=== PATIENT | male | born 1970 | race Caucasian/White ===

== ENCOUNTER 2016-07-30 10:45 | Outpatient (CLI) | payer OTHER | END 2016-07-30 10:46 | disposition home or self-care (01) | DX: J03.90 Acute tonsillitis, unspecified (principal) ==

== ENCOUNTER 2018-11-30 07:14 | Outpatient (CLI) | payer OTHER ==
[2018-11-30 12:49] LABS: BASOPHILS # (AUTO) 0.1 10^3/uL (0.0-0.1); BASOPHILS % (AUTO) 0.8 %; EOSINOPHILS # (AUTO) 0.3 10^3/uL (0.0-0.7); EOSINOPHILS % (AUTO) 3.6 %; HGB - HEMOGLOBIN 14.6 g/dL (14.0-18.0); LYMPHOCYTES # (AUTO) 2.3 10^3/uL (1.5-3.5); LYMPHOCYTES % (AUTO) 33.6 %; MEAN CORPUSCULAR HEMOGLOBIN 27.6 pg (27.0-31.0); MEAN CORPUSCULAR HGB CONC 32.4 g/dL (32.0-36.0); MEAN CORPUSCULAR VOLUME 85.1 fL (80.0-94.0); MEAN PLATELET VOLUME 8.8 fL (7.4-11.4); MONOCYTES # (AUTO) 0.6 10^3/uL (0.0-1.0); MONOCYTES % (AUTO) 8.6 %; NEUTROPHILS # (AUTO) 3.7 10^3/uL (1.5-6.6); NEUTROPHILS % (AUTO) 53.4 %; PLT - PLATELET COUNT 282 10^3/uL (130-450); RED BLOOD COUNT 5.28 10^6/uL (4.70-6.10); RED CELL DISTRIBUTION WIDTH 13.7 % (12.0-15.0); WHITE BLOOD COUNT 6.9 x10^3/uL (4.8-10.8)
[2018-11-30 13:34] LABS: ALBUMIN 4.4 g/dL (3.2-5.5); ALBUMIN/GLOBULIN RATIO 1.5 (1.0-2.2); ALKALINE PHOSPHATASE 67 IU/L (42-121); ALT ALANINE AMINOTRANSFERASE 38 IU/L (10-60); AST ASPARTATE AMINOTRANSFERASE 29 IU/L (10-42); BILIRUBIN,TOTAL 0.7 mg/dL (0.2-1.0); BUN - BLOOD UREA NITROGEN 16 mg/dL (6-20); CALCIUM 9.4 mg/dL (8.5-10.3); CARBON DIOXIDE - CO2 24 mmol/L (21-32); CHLORIDE 106 mmol/L (101-111); CHOLESTEROL 191 mg/dL; CREATININE 0.8 mg/dL (0.6-1.2); GFR - MDRD 102 (>89); GLUCOSE 99 mg/dL (70-100); HDL CHOLESTEROL 38 mg/dL; LDL CHOLESTEROL,CALCULATED 137 mg/dL; LDL/HDL RATIO 3.6 (<3.6); SODIUM 138 mmol/L (135-145); TOTAL PROTEIN 7.4 g/dL (6.7-8.2); VLDL CHOLESTEROL 16 mg/dL
== END 2018-11-30 07:15 | disposition home or self-care (01) ==
LOC: LAB.WCP 07:14
PROVIDERS: ATTEND Physician Assistant Medical
DX: Z00.00 Encounter for general adult medical examination without abnormal findings (principal); E78.5 Hyperlipidemia, unspecified; Z12.5 Encounter for screening for malignant neoplasm of prostate; K21.9 Gastro-esophageal reflux disease without esophagitis
CPT/HCPCS: 36415; 80053; 80061; 83721; 84153; 84443; 85025

== ENCOUNTER 2019-07-11 08:44 | Emergency (ER) | payer OTHER ==
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
[2019-07-11] MEDS ORDERED: PROPARACAINE 0.5% OPHTH DROPS 15 ML EACHEYE STA (09:16)
[2019-07-11] MEDS ORDERED: LIDOCAINE-EPINEPH-TETRACAINE 3 ML SYRINGE TOP STA (09:16)
[2019-07-11] MEDS ORDERED: IBUPROFEN 600 MG TABLET PO STA (09:16)
[2019-07-11] MEDS ORDERED: ACETAMINOPHEN 325 MG TABLET PO STA (09:16)
[2019-07-11 11:03] VITALS: BP 139/100
[2019-07-11] MEDS ORDERED: ERYTHROMYCIN OPHTH OINT 1 GM TUBE EACHEYE STA (11:07)
== END 2019-07-11 11:16 | disposition home or self-care (01) ==
LOC: ED 08:44
DX: T75.4XXA Electrocution, initial encounter (principal); T20.19XA Burn of first degree of multiple sites of head, face, and neck, initial encounter; T26.42XA Burn of left eye and adnexa, part unspecified, initial encounter; T26.41XA Burn of right eye and adnexa, part unspecified, initial encounter; T23.152A Burn of first degree of left palm, initial encounter; T23.151A Burn of first degree of right palm, initial encounter; W86.1XXA Exposure to industrial wiring, appliances and electrical machinery, initial encounter; Y93.89 Activity, other specified; Y99.0 Civilian activity done for income or pay; I10 Essential (primary) hypertension
CPT/HCPCS: 1040M; 93005; 99283; 99284; A9270; J3490

== ENCOUNTER 2020-07-29 14:13 | Outpatient (CLI) | payer OTHER ==
--- NOTE | 2020-07-29 15:38 | XRAY Report ---
PROCEDURE: Hips 2V BILAT INDICATIONS: CHRONIC LOW BACK PAIN TECHNIQUE: 3 views of the hip were acquired. COMPARISON: CT abdomen and pelvis 07/31/2013. FINDINGS: Bones: No fractures or dislocations. No suspicious bony lesions. The visualized pelvic ring appear s intact. Mild symmetric bilateral hip DJD. Overall similar to 2014. No avascular necrosis of the fem oral heads. Soft tissues: No suspicious soft tissue calcifications or masses. IMPRESSION: Mild symmetric bilateral hip DJD similar to 2014. Reviewed by: Jaguar Vieyra MD on 07/29/2020 2:37 PM [place] Approved by: Jaguar Vieyra MD on 07/29/2020 2:37 PM [place] Station ID: [id number]
--- NOTE | 2020-07-29 15:40 | XRAY Report ---
PROCEDURE: Lumbar Spine 2 View INDICATIONS: CHRONIC LOW BACK PAIN TECHNIQUE: 3 views of the lumbar spine were acquired. COMPARISON: CT abdomen and pelvis 07/31/2013. FINDINGS: Bones: 5 [id number] vertebrae are present. There is normal bony alignment. No vertebral body compression fractures. No suspicious bony lesions. Mild facet joint hypertrophy at L5-S1. Interverte bral disc space height appears preserved. Soft tissues: Overlying bowel gas pattern is normal. No suspicious soft tissue calcifications. IMPRESSION: Mild facet joint hypertrophy at L5-S1. Reviewed by: Jaguar Vieyra MD on 07/29/2020 2:39 PM [facility] Approved by: Jaguar Vieyra MD on 07/29/2020 2:39 PM [facility] Station ID: [id number]
== END 2020-07-29 14:14 | disposition home or self-care (01) ==
LOC: DI 14:13
PROVIDERS: ATTEND Physician Assistant Medical
DX: M54.5 Low back pain (principal); G89.29 Other chronic pain; M16.0 Bilateral primary osteoarthritis of hip
CPT/HCPCS: 73521

== ENCOUNTER 2020-07-31 16:17 | Emergency (ER) | payer OTHER ==
[2020-07-31 17:07] LABS: BASOPHILS # (AUTO) 0.1 10^3/uL (0.0-0.1); BASOPHILS % (AUTO) 0.6 %; EOSINOPHILS # (AUTO) 0.2 10^3/uL (0.0-0.7); EOSINOPHILS % (AUTO) 2.1 %; HGB - HEMOGLOBIN 14.2 g/dL (14.0-18.0); LYMPHOCYTES # (AUTO) 2.6 10^3/uL (1.5-3.5); LYMPHOCYTES % (AUTO) 23.4 %; MEAN CORPUSCULAR HEMOGLOBIN 28.2 pg (27.0-31.0); MEAN CORPUSCULAR HGB CONC 32.6 g/dL (32.0-36.0); MEAN CORPUSCULAR VOLUME 86.5 fL (80.0-94.0); MEAN PLATELET VOLUME 9.2 fL (7.4-11.4); MONOCYTES # (AUTO) 0.6 10^3/uL (0.0-1.0); MONOCYTES % (AUTO) 5.6 %; NEUTROPHILS # (AUTO) 7.4 10^3/uL (1.5-6.6); NEUTROPHILS % (AUTO) 67.7 %; PLT - PLATELET COUNT 405 10^3/uL (130-450); RED BLOOD COUNT 5.04 10^6/uL (4.70-6.10); RED CELL DISTRIBUTION WIDTH 13.2 % (12.0-15.0)
[2020-07-31 17:22] LABS: ALBUMIN 4.1 g/dL (3.2-5.5); ALBUMIN/GLOBULIN RATIO 1.1 (1.0-2.2); BILIRUBIN,TOTAL 0.7 mg/dL (0.2-1.0); CALCIUM 9.3 mg/dL (8.5-10.3); TOTAL PROTEIN 7.7 g/dL (6.7-8.2)
[2020-07-31 17:31] LABS: BILIRUBIN,URINE NEGATIVE (NEGATIVE); GLUCOSE, URINE (UA) NEGATIVE (NEGATIVE); KETONES,URINE (UA) NEGATIVE (NEGATIVE); LEUKOCYTE ESTERASE, URINE NEGATIVE (NEGATIVE); NITRITE,URINE NEGATIVE (NEGATIVE); OCCULT BLOOD,URINE NEGATIVE (NEGATIVE); PROTEIN,URINE NEGATIVE (NEGATIVE); UROBILINOGEN,URINE 0.2 (NORMAL) E.U./dL (NORMAL)
[2020-07-31 17:35] LABS: CLARITY,URINE CLEAR (CLEAR)
[2020-07-31] MEDS ORDERED: SODIUM CHLORIDE 0.9% 1,000 ML IV STA (18:04)
[2020-07-31] MEDS ORDERED: IOVERSOL 320 100 ML VIAL IVP ONE ×2 (18:20→20:33)
--- NOTE | 2020-07-31 19:03 | ED Physician Documentation ---
History of Present Illness - Stated complaint Stated Complaint: ABD PX - Chief complaint Chief Complaint: Abd Pain - History obtained from History obtained from: Patient - Additonal information Additional information: Patient comes emergency department chief complaint of right lower quadrant and suprapubic pain that started about a week and a half ago. Patient states that he has had low-grade fevers and diarrhea throughout that time and just figured that perhaps he was having another kidney stone. He states that his temperature got as high as 100.4 until 2 days ago when it spiked up to 102. Patient states that after resting for a day he felt better, and decided to go to work. However, the right lower quadrant pain was nagging at him and he felt that he should get it checked out. He went to urgent care earlier today and they told him to come here. The patient denies fever chills currently. No dysuria. No hematuria. He denies recent antibiotic treatment. No vomiting, though the pa gale has some mild nausea. No history of diverticulitis. No respiratory symptoms. No other complaints at this time. Review of Systems Ten Systems: 10 systems reviewed and negative Constitutional: reports: Fever, Chills Eyes: reports: Reviewed and negative Ears: reports: Reviewed and negative Nose: reports: Reviewed and negative Throat: reports: Reviewed and negative Cardiac: reports: Reviewed and negative Respiratory: reports: Reviewed and negative GI: reports: Abdominal Pain, Nausea : reports: Reviewed and negative Skin: reports: Reviewed and negative Musculoskeletal: reports: Reviewed and negative Neurologic: reports: Reviewed and negative Psychiatric: reports: Reviewed and negative Endocrine: reports: Reviewed and negative Immunocompromised: reports: Reviewed and negative PD PAST MEDICAL HISTORY - Past Medical History Past Medical History: Yes Cardiovascular: Hypertension, High cholesterol Respiratory: Other Endocrine/Autoimmune: None GI: None : Kidney stones, Other HEENT: None Psych: Claustrophobia Musculoskeletal: Chronic back pain Derm: None - Past Surgical History Past Surgical History: Yes General: Gastric surgery, EGD - Present Medications Home Medications: Ambulatory Orders Medication Instructions Recorded Confirmed Spironolactone [Aldactone] 150 mg PO DAILY 07/27/13 11/07/14 Erythromycin Base [Erythromycin 1 applic OP QID #3.5 oint...g. 07/11/19 Ophthalmic Ointment] Loperamide [Imodium] 2 mg PO BID PRN #10 capsule 07/31/20 Ondansetron Odt [Zofran Odt] 4 mg TL Q6H PRN #10 tablet 07/31/20 - Allergies Allergies/Adverse Reactions: Allergies Allergy/AdvReac Type Severity Reaction Status Date / Time felodipine [From Plendil] Allergy Unknown Unknown Verified 07/31/20 16:39 - Social History Does the pt smoke?: No Smoking Status: Never smoker Does the pt drink ETOH?: No Does the pt have substance abuse?: No - Immunizations Immunizations are current?: Yes - POLST Patient has POLST: No PD ED PE NORMAL - Vitals Vital signs reviewed: Yes - General General: Alert and oriented X 3, No acute distress, Well developed/nourished - HEENT HEENT: Atraumatic, PERRL, EOMI, Moist mucous membranes - Neck Neck: Supple, no meningeal sign - Cardiac Cardiac: RRR, No murmur, Strong equal pulses - Respiratory Respiratory: No respiratory distress, Clear bilaterally - Abdomen Abdomen: Soft, Non tender (Mild, right lower quadrant), Non distended - Back Back: No CVA TTP - Derm Derm: Normal color, Warm and dry, No rash - Extremities Extremities: No deformity, No edema, No calf tenderness / cord - Neuro Neuro: Alert and oriented X 3 - Psych Psych: Normal mood, Normal affect Results - Vitals Vitals: Vital Signs - 24 hr 07/31/20 07/31/20 07/31/20 16:39 17:15 19:00 Temperature 37.2 C 37.2 C Heart Rate 85 85 76 Respiratory 18 18 18 Rate Blood Pressure 137/95 H 137/95 H 155/100 H O2 Saturation 96 96 97 Oxygen O2 Source Room air - Labs Labs: Laboratory Tests 07/31/20 07/31/20 07/31/20 17:01 17:01 17:16 WBC 11.0 H RBC 5.04 Hgb 14.2 Hct 43.6 MCV 86.5 MCH 28.2 MCHC 32.6 RDW 13.2 Plt Count 405 MPV 9.2 Neut # (Auto) 7.4 H Lymph # (Auto) 2.6 Bartholomew # (Auto) 0.6 Eos # (Auto) 0.2 Baso # (Auto) 0.1 Absolute Nucleated RBC 0.00 Nucleated RBC % 0.0 Sodium 138 Potassium 4.0 Chloride 103 Carbon Dioxide 25 Anion Gap 10.0 BUN 14 Creatinine 1.0 Estimated GFR (MDRD) 79 L Glucose 128 H Calcium 9.3 Total Bilirubin 0.7 AST 26 ALT 51 Alkaline Phosphatase 75 Total Protein 7.7 Albumin 4.1 Globulin 3.6 Albumin/Globulin Ratio 1.1 Lipase 192 H Urine Color YELLOW Urine Clarity CLEAR Urine pH 6.0 Ur Specific [place] >=1.030 H Urine Protein NEGATIVE Urine Glucose (UA) NEGATIVE Urine Ketones NEGATIVE Urine Occult Blood NEGATIVE Urine Nitrite NEGATIVE Urine Bilirubin NEGATIVE Urine Urobilinogen 0.2 (NORMAL) Ur Leukocyte Esterase NEGATIVE Ur Microscopic Review NOT INDICATED Urine Culture Comments NOT INDICATED - Rads (name of study) CT abd/pelvis Radiology: Final report received, EMP read indepedently, See rad report (nad) PD MEDICAL DECISION MAKING - ED course Complexity details: reviewed results, re-evaluated patient, considered differential, d/w patient ED course: The patient was worked up with labs, urinalysis, and CT of the abdomen and pelvis. The patient CT scan was negative, and labs were unremarkable. I suspect a viral illness as a cause for the patient's symptoms, though the symptoms do seem to be somewhat long-lasting for viral syndrome. I discussed with the patient that if he is not feeling better by the end of the week, he will need to follow-up with his primary care physician to discuss having stool studies done and also to discuss further work-up and management. We have discussed the usual indications for return. I have prescribed him Imodium. Departure - Departure Disposition: 01 Home, Self Care Clinical Impression: Viral gastroenteritis Condition: Stable Instructions: ED Gastroenteritis Viral Prescriptions: Loperamide [Imodium] 2 mg PO BID PRN #10 capsule PRN Reason: Diarrhea Ondansetron Odt [Zofran Odt] 4 mg TL Q6H PRN #10 tablet PRN Reason: Nausea / Vomiting Comments: Surprisingly, your CT scan was completely negative. This is good news, and that we have not found a serious cause of your pain. Most likely, you have contra cted one of the many viruses that go around this time of year and can cause such symptoms. You may take the medication for diarrhea, as needed. Please be sure to get plenty of fluids and try to eat some simple starches, which can be handled better by your intestines when you are not feeling well. Please follow- up with your primary care physician if you are not feeling better by the end of the week for stool studies. Discharge Date/Time: 07/31/20 19:34
--- NOTE | 2020-07-31 19:19 | CT Report ---
PROCEDURE: Abdomen/Pelvis W INDICATIONS: RLQ abd pain, fevers CONTRAST: IV CONTRAST: Optiray 320 ml: 100 PO CONTRAST: *NO PO CONTRAST TECHNIQUE: After the administration of weight appropriate dose of intravenous contrast, 5 mm thick sections acqu ired from the diaphragms to the symphysis. 5 mm thick coronal and sagittal reformats were acquired. For radiation dose reduction, the following was used: automated exposure control, adjustment of mA and/or kV according to patient size. COMPARISON: 07/31/2013 FINDINGS: Image quality: Excellent. ABDOMEN: Lung bases: Lung bases are clear. Heart size is normal. Solid organs: Liver and spleen are normal in size and enhancement. Hepatic steatosis. Gallbladder i s unremarkable. Biliary system is non dilated. Pancreas enhances normally. No adrenal nodules. Ki dneys demonstrate normal size and enhancement, without hydronephrosis. Peritoneum and bowel: Bowel loops demonstrate normal wall thickness and caliber. No free fluid or a ir. Normal appendix. Stable postsurgical changes of the stomach and GE junction. Nodes and vessels: No retroperitoneal or mesenteric adenopathy by size criteria. Aorta and inferior vena cava are normal in size. Miscellaneous: No ventral hernias. PELVIS: Genitourinary: Bladder wall thickness is normal. Miscellaneous: No pelvic adenopathy. Very small fat-containing bilateral inguinal hernias without ac [place] inflammation. Bones: No suspicious bony lesions. No acute vertebral body compression fractures. IMPRESSION: CT abdomen and pelvis without acute abnormalities to explain patient's symptoms. Normal appendix. Other chronic findings as above. Reviewed by: Sean Gamboa MD on 07/31/2020 6:18 PM [facility] Approved by: Sean Gamboa MD on 07/31/2020 6:18 PM [facility] Station ID: [id number]
[2020-07-31 19:29] VITALS: BP 155/100
--- OUTSIDE RECORDS SUMMARY | 2020-08-01 04:52 | EXTERNAL MEDICAL SUMMARY RPT | Continuity of Care Document ---
:1970 Demographics Phone Unavailable Preferred Language Occitan Marital Status Unknown Baptism Affiliation Unknown Race Unknown Ethnic Group Unknown Author Organization [place] [address] [place] Address [address] [phone] Phone Care Team Providers Name Role Phone PA-C Unavailable Unavailable Oc Unavailable Unavailable Eneiad Unavailable Unavailable Problems date description facility 2013-07-31 12:55 RENAL COLIC [facility] 2013-07-31 12:55 ABDOMINAL PAIN, OTHER SPECIFIED [facility] SITE 2014-06-08 09:19 [facility] 2014-06-08 09:19 BURSAE TENDONS DIS LDER NOS [facility] 2014-06-08 09:19 SPRAIN [address] [facility] 2014-06-08 09:[address] [facility] 2014-11-07 08:34 SHOULDER REGION DIS Located within [facility] 2014-11-07 08:34 SPRAIN ROTATOR CUFF [facility] 2014-11-07 08:34 SPRAIN SHOULDER/ARM Located within [facility] 2014-11-07 08:34 BARIATRIC SURGERY STATUS [facility] 2016-07-30 10:45 ACUTE TONSILLITIS, UNSPECIFIED [facility] 2018-11-30 07:14 HYPERLIPIDEMIA, UNSPECIFIED [facility] 2018-11-30 07:14 GASTRO-ESOPHAGEAL REFLUX [facility] DISEASE WITHOUT ESOPHAGITIS 2018-11-30 07:14 ENCNTR FOR GENERAL ADULT [facility] MEDICAL EXAM W/O ABNORMAL FINDINGS 2018-11-30 07:14 ENCOUNTER FOR SCREENING FOR [facility] MALIGNANT NEOPLASM OF PROSTATE 2020-07-12 00:00:00 TSH WITH REFLEX TO FT4 [facility] 2020-07-12 00:00:00 Screening for malignant [facility] neoplasms of colon [facility] 2020-07-12 00:00:00 LUMBAR SPINE 2 OR 3 VIEW [facility] 2020-07-12 00:00:00 HIP MIN 2 VIEWS BILATERAL [facility] (including hip and pelvis) [facility] 2020-07-12 00:00:00 COMPREHENSIVE METABOLIC PANEL [facility] 2020-07-12 00:00:00 [facility]:00 [facility] 2020-07-12 00:00:00 CBC W/Diff/Plt [facility] 2020-07-12 00:00:00 Encounter for screening for [facility] malignant neoplasm of colon [facility] 2020-07-12 00:00:00 Health-related behavior [facility] 2020-07-12 00:00:00 Tobacco use and exposure [facility] 2020-07-12 00:00:00 Exercise [facility] 2020-07-12 00:00:00 Never smoker [facility] 2020-07-12 00:00:00 [facility] neoplasm of colon [facility] 2020-07-12 00:00:00 Little interest or pleasure in [facility] doing things? [facility] 2020-07-12 00:00:00 Feeling down, depressed, or [facility] hopeless? [facility] 2020-07-12 00:00:00 Patient Health Questionnaire 2 [facility] item (PHQ2) total score [facility] 2020-07-12 00:00:00 [facility] 2020-07-12 00:00:00 Tobacco smoking status NHIS [facility] 2020-07-12 00:00:00 Total score? [facility] [place] [facility] 2020-07-29 14:13 LOW BACK PAIN [facility] 2020-07-31 00:00:00 Diarrhea [facility] 2020-07-31 00:00:00 Unspecified abdominal pain [facility] 2020-07-31 00:00:00 Diarrhea, unspecified [facility] 2020-07-31 00:00:00 Abdominal pain [facility] Allergies date description facility NO KNOWN ALLERGIES [facility] NO KNOWN ALLERGIES [facility] Penicillins [facility] dexamethasone [facility] CETIRIZINE HCL [facility] NO KNOWN ALLERGIES [facility] felodipine [facility] Medications date description facility 2020-07-12 00:00:00 null [facility] 2020-07-12 00:00:00 null [facility] 2020-07-12 00:00:00 GABAPENTIN [facility] 2020-07-12 00:00:00 GABAPENTIN [facility] Results Social History date description facility 2020-07-12 00:00:00 Never smoker [facility] Social History date description facility 2020-07-12 00:00:00 Never smoker [facility] date description facility [id number]
== END 2020-07-31 19:34 | disposition home or self-care (01) ==
LOC: ED 16:17
DX: A08.4 Viral intestinal infection, unspecified (principal); I10 Essential (primary) hypertension
CPT/HCPCS: 36415; 74177; 80053; 81003; 83690; 85025; 99284; Q9967; 81001; 87086

== ENCOUNTER 2020-10-05 09:11 | Day surgery (SDC) | payer OTHER ==
[2020-10-05] MEDS ORDERED: LACTATED RINGERS 1,000 ML IV ONE (09:56)
[2020-10-05] MEDS ORDERED: MIDAZOLAM 2 MG/2 ML VIAL ONE ×4 (10:04→10:23)
[2020-10-05] MEDS ORDERED: fentaNYL 250 MCG/5 ML VIAL ONE (10:05)
[2020-10-05] MEDS ORDERED: LACTATED RINGERS 400 ML IV ONE (10:35)
[2020-10-05] MEDS ORDERED: ONDANSETRON 4 MG/2 ML VIAL ONE (10:38)
[2020-10-05 10:52] VITALS: BP 114/66
== END 2020-10-05 09:12 | disposition home or self-care (01) ==
LOC: SDS 09:11
PROVIDERS: ATTEND Surgery
PROC: 0DBC8ZX Excision of Ileocecal Valve, Via Natural or Artificial Opening Endoscopic, Diagnostic (ICD-10-PCS; principal; 2020-10-05 10:30)
DX: R10.33 Periumbilical pain (principal); K63.3 Ulcer of intestine; D17.79 Benign lipomatous neoplasm of other sites; I10 Essential (primary) hypertension; G47.30 Sleep apnea, unspecified
CPT/HCPCS: 45380; J3010; J7120

== ENCOUNTER 2022-01-09 07:36 | Outpatient (CLI) | payer OTHER ==
[2022-01-09 07:50] LABS: BASOPHILS # (AUTO) 0.1 10^3/uL (0.0-0.1); BASOPHILS % (AUTO) 1.1 %; EOSINOPHILS # (AUTO) 0.2 10^3/uL (0.0-0.7); EOSINOPHILS % (AUTO) 4.3 %; HCT - HEMATOCRIT 47.2 % (42.0-52.0); HGB - HEMOGLOBIN 15.3 g/dL (14.0-18.0); LYMPHOCYTES # (AUTO) 1.9 10^3/uL (1.5-3.5); LYMPHOCYTES % (AUTO) 33.9 %; MEAN CORPUSCULAR HEMOGLOBIN 28.3 pg (27.0-31.0); MEAN CORPUSCULAR HGB CONC 32.4 g/dL (32.0-36.0); MEAN CORPUSCULAR VOLUME 87.2 fL (80.0-94.0); MEAN PLATELET VOLUME 9.7 fL (7.4-11.4); MONOCYTES # (AUTO) 0.5 10^3/uL (0.0-1.0); NEUTROPHILS # (AUTO) 2.9 10^3/uL (1.5-6.6); NEUTROPHILS % (AUTO) 52.5 %; PLT - PLATELET COUNT 265 10^3/uL (130-450); RED BLOOD COUNT 5.41 10^6/uL (4.70-6.10); RED CELL DISTRIBUTION WIDTH 12.7 % (12.0-15.0); WHITE BLOOD COUNT 5.6 x10^3/uL (4.8-10.8)
[2022-01-09 08:18] LABS: ALBUMIN 4.4 g/dL (3.2-5.5); ALBUMIN/GLOBULIN RATIO 1.3 (1.0-2.2); ALKALINE PHOSPHATASE 64 IU/L (42-121); ALT ALANINE AMINOTRANSFERASE 41 IU/L (10-60); AST ASPARTATE AMINOTRANSFERASE 25 IU/L (10-42); BILIRUBIN,TOTAL 0.8 mg/dL (0.2-1.0); BUN - BLOOD UREA NITROGEN 17 mg/dL (6-20); CALCIUM 9.3 mg/dL (8.5-10.3); CARBON DIOXIDE - CO2 29 mmol/L (21-32); CHLORIDE 105 mmol/L (101-111); CHOL/HDL RATIO 4.5 (<5.0); CHOLESTEROL 197 mg/dL; CREATININE 0.9 mg/dL (0.6-1.2); GFR - MDRD 88 (>89); GLUCOSE 120 mg/dL (70-100); HDL CHOLESTEROL 44 mg/dL; LDL CHOLESTEROL,CALCULATED 124 mg/dL; LDL/HDL RATIO 2.8 (<3.6); POTASSIUM 4.3 mmol/L (3.5-5.0); SODIUM 141 mmol/L (135-145); TOTAL PROTEIN 7.9 g/dL (6.7-8.2); TRIGLYCERIDES 143 mg/dL; VLDL CHOLESTEROL 29 mg/dL
[2022-01-09 08:27] LABS: THYROID STIMULATING HORMONE 3.2 uIU/mL (0.34-5.60)
== END 2022-01-09 07:37 | disposition home or self-care (01) ==
LOC: LAB 07:36
PROVIDERS: ATTEND Physician Assistant Medical
DX: Z00.00 Encounter for general adult medical examination without abnormal findings (principal); E78.5 Hyperlipidemia, unspecified; Z12.5 Encounter for screening for malignant neoplasm of prostate
CPT/HCPCS: 36415; 80053; 80061; 83721; 84153; 84443; 85025

== ENCOUNTER 2022-07-16 06:35 | Outpatient (CLI) | payer OTHER ==
[2022-07-16 06:54] LABS: CALCIUM 9.1 mg/dL (8.5-10.3); POTASSIUM 4.2 mmol/L (3.5-5.0)
[2022-07-16 13:22] LABS: ESTIMATED AVERAGE GLUCOSE 154 mg/dL (70-100)
--- NOTE | 2022-07-16 17:36 | XRAY Report ---
PROCEDURE: Hip w/Pelvis 2-3V LT INDICATIONS: HIP PAIN, LEFT TECHNIQUE: AP pelvis with lateral view(s) of the left hip(s). COMPARISON: None. FINDINGS: Bones: Left worse than right bilateral hip joint osteoarthritis is seen with superior joint space na rrowing and subchondral sclerosis. No fractures or dislocations. No evidence of avascular necrosis of femoral head. Pelvic ring appears intact. No suspicious bony lesions. Soft tissues: The visualized bowel gas pattern is normal. No suspicious soft tissue calcifications. IMPRESSION: Asymmetric mild to moderate left hip joint osteoarthritis. No fracture or dislocation. No evidence of avascular necrosis. Reviewed by: Josiah Meeks MD on 07/16/2022 5:34 PM PST Approved by: Josiah Meeks MD on 07/16/2022 5:34 PM PST Station ID: [id number]
== END 2022-07-16 06:36 | disposition home or self-care (01) ==
LOC: LAB 06:35
PROVIDERS: ATTEND Physician Assistant Medical
DX: M16.12 Unilateral primary osteoarthritis, left hip (principal); R73.9 Hyperglycemia, unspecified
CPT/HCPCS: 36415; 80048; 83036

== ENCOUNTER 2023-07-14 10:40 | Outpatient (CLI) | payer OTHER ==
[2023-07-14 11:27] LABS: CALCIUM 9.7 mg/dL (8.5-10.3); CREATININE 0.9 mg/dL (0.6-1.3); POTASSIUM 3.5 mmol/L (3.5-4.5)
[2023-07-14 11:27] LABS: CREATININE,URINE 95.8 mg/dL; PROTEIN/CREATININE RATIO,URINE 0.1 (<=0.2)
== END 2023-07-14 10:41 | disposition home or self-care (01) ==
LOC: LAB 10:40
PROVIDERS: ATTEND Internal Medicine Nephrology
DX: E11.9 Type 2 diabetes mellitus without complications (principal); N05.9 Unspecified nephritic syndrome with unspecified morphologic changes; R80.9 Proteinuria, unspecified; E26.9 Hyperaldosteronism, unspecified
CPT/HCPCS: 36415; 80048; 82088; 82570; 84156; 84244

== ENCOUNTER 2023-08-12 07:17 | Outpatient (CLI) | payer OTHER ==
[2023-08-12 07:42] LABS: CREATININE 0.9 mg/dL (0.6-1.3)
== END 2023-08-12 07:18 | disposition home or self-care (01) ==
LOC: LAB 07:17
PROVIDERS: ATTEND Internal Medicine Nephrology
DX: N05.9 Unspecified nephritic syndrome with unspecified morphologic changes (principal)
CPT/HCPCS: 36415; 80048

== ENCOUNTER 2023-11-03 07:02 | Outpatient (CLI) | payer OTHER ==
[2023-11-03 08:00] LABS: CALCIUM 10.1 mg/dL (8.5-10.3); CREATININE 0.9 mg/dL (0.6-1.3); POTASSIUM 3.9 mmol/L (3.5-4.5)
== END 2023-11-03 07:03 | disposition home or self-care (01) ==
LOC: LAB 07:02
PROVIDERS: ATTEND Internal Medicine Nephrology
DX: E11.9 Type 2 diabetes mellitus without complications (principal); N05.9 Unspecified nephritic syndrome with unspecified morphologic changes
CPT/HCPCS: 36415; 80048